=== PATIENT | male | born 1965 | race Caucasian/White ===

== ENCOUNTER 2025-01-31 10:52 | Day surgery (SDC) | payer BC ==
[2025-01-31] MEDS: Sodium Chloride 0.9% 10 ML Syringe FLUSH PRN (11:05)
[2025-01-31] MEDS: Lactated Ringers 1,000 ML IV SCH (11:10)
[2025-01-31] MEDS ORDERED: Propofol 200 MG/20 ML SDV ONE (11:20)
[2025-01-31] MEDS ORDERED: Midazolam 1 MG/ML 2 ML SDV ONE (11:20)
[2025-01-31 12:44] VITALS: BP 126/88; PULSE 70
== END 2025-01-31 12:55 | disposition home or self-care (01) ==
LOC: KA.SDS 10:52
PROVIDERS: ATTEND Family Medicine
DX: Z12.11 Encounter for screening for malignant neoplasm of colon (principal); D12.3 Benign neoplasm of transverse colon; K63.5 Polyp of colon; K64.8 Other hemorrhoids; K57.30 Diverticulosis of large intestine without perforation or abscess without bleeding; K64.4 Residual hemorrhoidal skin tags; I10 Essential (primary) hypertension; E78.2 Mixed hyperlipidemia; K21.9 Gastro-esophageal reflux disease without esophagitis; E66.9 Obesity, unspecified; Z68.41 Body mass index [BMI] 40.0-44.9, adult; Z80.0 Family history of malignant neoplasm of digestive organs; Z79.899 Other long term (current) drug therapy
CPT/HCPCS: 00811; 88305; J2250; J2704; J7120